=== PATIENT | female | born 1950 | race Caucasian/White ===

== ENCOUNTER 2017-11-19 10:06 | Day surgery (SDC) | payer MEDICARE ==
[~2017-11-19] VITALS: Ht 149.9 cm; Wt 75.3 kg
[~2017-11-19 10:06] MED LIST: ASPERCREME102 EX; ASPIRIN81 MG PO; ATENOLOL50 MG PO; BENADRYL 25MG C25 MG PO; BREO ELLIPTA 101 INH IN; BUPROPION150 M3 PO; CALCIUM + D3 601 TAB PO; COQ-10100 M1 PO; D32000 UNI1 PO; EQL OMEPRAZOLE20 MG PO; HUMALOG100 UNIT/M SC; LEVEMIR100 UNIT/M SC; LISINOPRIL10 MG PO; LOPID600 MG PO; LORATADINE10 M1 PO; MELOXICAM7.5 MG PO; METFORMIN500 MG PO; MULTI VIT PO; OMEGA 31000 MG PO; ROPINIROLE0.5 MG PO; SIMVASTATIN40 MG PO; TIZANIDINE HCL4 M1 PO
[2017-11-19] MEDS ORDERED: PERCOCET1 TA4 PO (13:45)
[2017-11-19] MEDS ORDERED: ECOTRIN LOW STR81 MG PO (13:45)
[2017-11-19] MEDS ORDERED: KEFLEX500 M1 PO (13:45)
[2017-11-19 14:38] VITALS: BP 137/64
== END 2017-11-19 14:58 | disposition home or self-care (01) ==
LOC: ORM 10:06
PROVIDERS: ATTEND Podiatrist Foot & Ankle Surgery
PROC: 0SGF44Z Fusion of Right Ankle Joint with Internal Fixation Device, Percutaneous Endoscopic Approach (ICD-10-PCS; principal; 2017-11-19)
PROC: 0SBF4ZZ Excision of Right Ankle Joint, Percutaneous Endoscopic Approach (ICD-10-PCS; 2017-11-19)
DX: M25.371 Other instability, right ankle (principal); M65.871 Other synovitis and tenosynovitis, right ankle and foot; S93.491A Sprain of other ligament of right ankle, initial encounter; S93.411A Sprain of calcaneofibular ligament of right ankle, initial encounter; M77.51 Other enthesopathy of right foot and ankle; X58.XXXA Exposure to other specified factors, initial encounter
CPT/HCPCS: J1100

== ENCOUNTER → 2018-02-07 | Day surgery (SDC) | payer MEDICARE ==
[~2018-02-07] MED LIST changes: +BREO ELLIPTA 101 INH PO; +ECOTRIN LOW STR81 MG PO; +HUMALOG KW100 UNIT/M SC; +KEFLEX500 M1 PO; +PERCOCET1 TA4 PO; +SG ASA LOW81 M1 PO
[2018-02-07 11:25] VITALS: BP 106/58
== END ==
LOC: ENDO 08:57 → ORM 15:45
PROVIDERS: ATTEND Internal Medicine Gastroenterology
PROC: 0DBP8ZX Excision of Rectum, Via Natural or Artificial Opening Endoscopic, Diagnostic (ICD-10-PCS; principal; 2018-02-07)
PROC: 0DBE8ZX Excision of Large Intestine, Via Natural or Artificial Opening Endoscopic, Diagnostic (ICD-10-PCS; 2018-02-07)
PROC: 0DB98ZX Excision of Duodenum, Via Natural or Artificial Opening Endoscopic, Diagnostic (ICD-10-PCS; 2018-02-07)
PROC: 0DB68ZX Excision of Stomach, Via Natural or Artificial Opening Endoscopic, Diagnostic (ICD-10-PCS; 2018-02-07)
PROC: 0DB48ZX Excision of Esophagogastric Junction, Via Natural or Artificial Opening Endoscopic, Diagnostic (ICD-10-PCS; 2018-02-07)
PROC: 0D758ZZ Dilation of Esophagus, Via Natural or Artificial Opening Endoscopic (ICD-10-PCS; 2018-02-07)
DX: R19.7 Diarrhea, unspecified (principal); K62.1 Rectal polyp; K57.30 Diverticulosis of large intestine without perforation or abscess without bleeding; K64.4 Residual hemorrhoidal skin tags; K64.8 Other hemorrhoids; K22.2 Esophageal obstruction; K21.0 Gastro-esophageal reflux disease with esophagitis; K22.70 Barrett's esophagus without dysplasia; K31.7 Polyp of stomach and duodenum; K29.70 Gastritis, unspecified, without bleeding; Q40.8 Other specified congenital malformations of upper alimentary tract; I10 Essential (primary) hypertension; E11.9 Type 2 diabetes mellitus without complications; I25.10 Atherosclerotic heart disease of native coronary artery without angina pectoris; I25.2 Old myocardial infarction; Z79.899 Other long term (current) drug therapy

== ENCOUNTER 2018-10-14 18:32 | Emergency (ER) | payer MEDICARE ==
[~2018-10-14] VITALS: Ht 149.9 cm; Wt 81.0 kg
[2018-10-14 19:34] LABS: URINE BILIRUBIN - DIPSTICK NEGATIVE (NEGATIVE); URINE BLOOD DIPSTICK LARGE (NEGATIVE); URINE COLOR YELLOW; URINE GLUCOSE - DIPSTICK >=1000 mg/dL (NEGATIVE); URINE KETONE TRACE mg/dL (NEGATIVE); URINE LEUK ESTERASE NEGATIVE (NEGATIVE); URINE NITRITE - DIPSTICK NEGATIVE (Negative); URINE PH 5.5 (4.5-8.0); URINE PROTEIN - DIPSTICK TRACE mg/dL (NEG-TRACE); URINE SPECIFIC GRAVITY >=1.030; URINE UROBILINOGEN - DIPSTICK 0.2 E.U./dL (0.2)
[2018-10-14 19:35] LABS: HEMATOCRIT 37.9 % (37.0-47.0); HEMOGLOBIN 12.3 g/dl (12.0-16.0); IMMATURE GRANULOCYTES 0.7 % (0.0-5.0); MEAN CELL VOLUME 90.9 fL CALC (80.0-100.0); MEAN CORPUSCULAR HGB 29.5 pG CALC (26.0-32.0); MEAN CORPUSCULAR HGB CONC 32.5 g/L CALC (32.0-36.0); NEUT# 15.38 thou/uL (2.00-7.15); RED BLOOD COUNT 4.17 mill/uL (4.20-5.60); RED CELL DISTRI WIDTH 12.9 % (11.5-15.5)
[2018-10-14 19:44] LABS: URINE SQUAMOUS EPITHELIAL CELL FEW EPI/hpf (0-FEW); URINE URIC ACID CRYSTALS FEW lpf
[2018-10-14 19:53] LABS: ALBUMIN 4.4 g/dL (3.2-5.0); CREATININE 1.4 mg/dL (0.5-1.0); POTASSIUM 4.7 mmol/l (3.5-5.1); TOTAL PROTEIN 7.1 g/dL (6.3-8.2)
[2018-10-14 19:55] LABS: BILIRUBIN, TOTAL 0.6 mg/dL (0.0-1.4)
[2018-10-14] MEDS ORDERED: TAMSULOSIN0.4 MG PO (21:10)
[2018-10-14] MEDS ORDERED: KEFLEX500 M1 PO (21:10)
[2018-10-14] MEDS ORDERED: TRAMADOL HYDROC50 MG PO (21:10)
[2018-10-14 22:30] VITALS: BP 110/50
== END 2018-10-14 22:30 | disposition home or self-care (01) ==
LOC: ED 18:32
PROVIDERS: Family Medicine
DX: N20.0 Calculus of kidney (principal); N39.0 Urinary tract infection, site not specified; I10 Essential (primary) hypertension; E11.9 Type 2 diabetes mellitus without complications; Z79.4 Long term (current) use of insulin

== ENCOUNTER 2018-10-15 14:40 | Observation (INO) | payer MEDICARE ==
[~2018-10-15] VITALS: Ht 149.9 cm; Wt 81.7 kg
[~2018-10-15 14:40] MED LIST changes: +TAMSULOSIN0.4 MG PO; +TRAMADOL HYDROC50 MG PO
[2018-10-15 14:51] VITALS: BP 139/76
[2018-10-15 15:34] LABS: HEMOGLOBIN 10.9 g/dl (12.0-16.0); IMMATURE GRANULOCYTES 0.4 % (0.0-5.0); MEAN CELL VOLUME 92.1 fL CALC (80.0-100.0); MEAN CORPUSCULAR HGB 29.5 pG CALC (26.0-32.0); MEAN CORPUSCULAR HGB CONC 32.1 g/L CALC (32.0-36.0); NEUT# 11.31 thou/uL (2.00-7.15); RED BLOOD COUNT 3.69 mill/uL (4.20-5.60); RED CELL DISTRI WIDTH 12.8 % (11.5-15.5)
[2018-10-15 15:51] LABS: CREATININE 1.5 mg/dL (0.5-1.0); POTASSIUM 4.2 mmol/l (3.5-5.1)
[2018-10-15 17:33] LABS: URINE BILIRUBIN - DIPSTICK NEGATIVE (NEGATIVE); URINE BLOOD DIPSTICK NEGATIVE (NEGATIVE); URINE COLOR YELLOW; URINE GLUCOSE - DIPSTICK NEGATIVE (NEGATIVE); URINE KETONE NEGATIVE (NEGATIVE); URINE LEUK ESTERASE NEGATIVE (Negative); URINE NITRITE - DIPSTICK NEGATIVE (Negative); URINE PH 5.5 (4.5-8.0); URINE PROTEIN - DIPSTICK NEGATIVE (NEG-TRACE); URINE SPECIFIC GRAVITY >=1.030; URINE UROBILINOGEN - DIPSTICK 0.2 E.U./dL (0.2)
[2018-10-15 17:34] LABS: URINE CLARITY HAZY
[2018-10-15 19:57] VITALS: BP 127/72
[2018-10-15 22:28] LABS: CHOLESTEROL HDL RATIO 4.3 (<4.4 (CALC))
[2018-10-16] VITALS (10 sets, daily range): BP systolic 112–136; BP diastolic 51–73
[2018-10-16 05:07] LABS: HEMOGLOBIN 10.7 g/dl (12.0-16.0); IMMATURE GRANULOCYTES 0.5 % (0.0-5.0); MEAN CELL VOLUME 92.2 fL CALC (80.0-100.0); MEAN CORPUSCULAR HGB 29.9 pG CALC (26.0-32.0); MEAN CORPUSCULAR HGB CONC 32.4 g/L CALC (32.0-36.0); NEUT# 11.96 thou/uL (2.00-7.15); RED BLOOD COUNT 3.58 mill/uL (4.20-5.60)
[2018-10-16 05:32] LABS: ALBUMIN 3.7 g/dL (3.2-5.0); BILIRUBIN, TOTAL 0.4 mg/dL (0.0-1.4); CREATININE 1.4 mg/dL (0.5-1.0); POTASSIUM 4.3 mmol/l (3.5-5.1); TOTAL PROTEIN 6.2 g/dL (6.3-8.2)
[2018-10-17 00:18] VITALS: BP 116/53
[2018-10-17 03:53] LABS: HEMATOCRIT 31.8 % (37.0-47.0); HEMOGLOBIN 10.2 g/dl (12.0-16.0); MEAN CELL VOLUME 93.3 fL CALC (80.0-100.0); MEAN CORPUSCULAR HGB 29.9 pG CALC (26.0-32.0); MEAN CORPUSCULAR HGB CONC 32.1 g/L CALC (32.0-36.0); NEUT# 8.37 thou/uL (2.00-7.15); RED BLOOD COUNT 3.41 mill/uL (4.20-5.60); RED CELL DISTRI WIDTH 13.1 % (11.5-15.5)
[2018-10-17 04:11] LABS: ALBUMIN 3.2 g/dL (3.2-5.0); ALKALINE PHOSPHATASE 85 u/l (38-126); ANION GAP 15 (6-22 (CALC)); BILIRUBIN, TOTAL 0.4 mg/dL (0.0-1.4); BUN 16 mg/dL (8-23); BUN/CREATININE RATIO 19 (12-20 (CALC)); CARBON DIOXIDE 21 mmol/l (22-30); CHLORIDE 106 mmol/l (95-108); CREATININE 0.8 mg/dL (0.5-1.0); GFR > 60 ML/MIN (>=60 (CALC)); GFR FOR AFR.AMER. > 60 ML/MIN (>=60 (CALC)); POTASSIUM 4.9 mmol/l (3.5-5.1); SGOT/AST 29 u/l (9-36); SODIUM 137 mmol/l (137-146); TOTAL PROTEIN 5.6 g/dL (6.3-8.2)
[2018-10-17 04:42] VITALS: BP 125/55
[2018-10-17 07:45] VITALS: BP 111/58
[2018-10-17 11:15] VITALS: BP 134/64
[2018-10-17] MEDS ORDERED: LEVAQUIN750 MG PO (12:21)
== END 2018-10-17 13:09 | disposition home or self-care (01) ==
LOC: MS2 14:40
PROVIDERS: ADMIT Internal Medicine Geriatric Medicine; ATTEND Internal Medicine Geriatric Medicine
PROC: 0T778DZ Dilation of Left Ureter with Intraluminal Device, Via Natural or Artificial Opening Endoscopic (ICD-10-PCS; principal; 2018-10-16)
PROC: BT1FZZZ Fluoroscopy of Left Kidney, Ureter and Bladder (ICD-10-PCS; 2018-10-16)
DX: N13.2 Hydronephrosis with renal and ureteral calculous obstruction (principal); N28.89 Other specified disorders of kidney and ureter; E11.9 Type 2 diabetes mellitus without complications; I25.10 Atherosclerotic heart disease of native coronary artery without angina pectoris; J44.9 Chronic obstructive pulmonary disease, unspecified; I10 Essential (primary) hypertension; E03.9 Hypothyroidism, unspecified; F41.9 Anxiety disorder, unspecified; F32.9 Major depressive disorder, single episode, unspecified; K57.30 Diverticulosis of large intestine without perforation or abscess without bleeding; M10.9 Gout, unspecified; E78.5 Hyperlipidemia, unspecified; F17.200 Nicotine dependence, unspecified, uncomplicated; Z85.118 Personal history of other malignant neoplasm of bronchus and lung
CPT/HCPCS: C1769; Q9967

== ENCOUNTER 2018-10-23 16:45 | Day surgery (SDC) | payer MEDICARE ==
[~2018-10-23] VITALS: Ht 149.9 cm; Wt 81.6 kg
[~2018-10-23 16:45] MED LIST changes: +LEVAQUIN750 MG PO
[2018-10-23 17:57] LABS: HEMATOCRIT 34.2 % (37.0-47.0); IMMATURE GRANULOCYTES 1.2 % (0.0-5.0); MEAN CELL VOLUME 91.7 fL CALC (80.0-100.0); MEAN CORPUSCULAR HGB 29.5 pG CALC (26.0-32.0); MEAN CORPUSCULAR HGB CONC 32.2 g/L CALC (32.0-36.0); NEUT# 5.37 thou/uL (2.00-7.15); RED BLOOD COUNT 3.73 mill/uL (4.20-5.60); RED CELL DISTRI WIDTH 12.7 % (11.5-15.5)
[2018-10-23 18:13] LABS: ALKALINE PHOSPHATASE 85 u/l (38-126); BILIRUBIN, TOTAL 0.4 mg/dL (0.0-1.4); BUN 12 mg/dL (8-23); BUN/CREATININE RATIO 16 (12-20 (CALC)); CHLORIDE 101 mmol/l (95-108); CREATININE 0.7 mg/dL (0.5-1.0); GFR > 60 ML/MIN (>=60 (CALC)); GFR FOR AFR.AMER. > 60 ML/MIN (>=60 (CALC)); SGOT/AST 16 u/l (9-36); SODIUM 141 mmol/l (137-146); TOTAL PROTEIN 6.6 g/dL (6.3-8.2)
[2018-10-23 18:14] LABS: ALBUMIN 3.9 g/dL (3.2-5.0); ANION GAP 14 (6-22 (CALC)); CARBON DIOXIDE 30 mmol/l (22-30)
[2018-10-23] MEDS ORDERED: KEFLEX500 MG PO (19:40)
[2018-10-23] MEDS ORDERED: NORCO1 TA1 PO (19:40)
[2018-10-23] MEDS ORDERED: PYRIDIUM200 MG PO (19:40)
[2018-10-23] MEDS ORDERED: DITROPAN5 MG/TA1 PO (19:40)
[2018-10-23 20:13] VITALS: BP 131/64
== END 2018-10-23 20:30 | disposition home or self-care (01) ==
LOC: ORM 16:45
PROVIDERS: ATTEND Urology
PROC: 0TF48ZZ Fragmentation in Left Kidney Pelvis, Via Natural or Artificial Opening Endoscopic (ICD-10-PCS; principal; 2018-10-23)
PROC: 0T778DZ Dilation of Left Ureter with Intraluminal Device, Via Natural or Artificial Opening Endoscopic (ICD-10-PCS; 2018-10-23)
PROC: 0TP98DZ Removal of Intraluminal Device from Ureter, Via Natural or Artificial Opening Endoscopic (ICD-10-PCS; 2018-10-23)
PROC: BT1FZZZ Fluoroscopy of Left Kidney, Ureter and Bladder (ICD-10-PCS; 2018-10-23)
DX: N13.2 Hydronephrosis with renal and ureteral calculous obstruction (principal); E11.9 Type 2 diabetes mellitus without complications; I25.10 Atherosclerotic heart disease of native coronary artery without angina pectoris; J44.9 Chronic obstructive pulmonary disease, unspecified; E03.9 Hypothyroidism, unspecified; F17.200 Nicotine dependence, unspecified, uncomplicated; Z95.5 Presence of coronary angioplasty implant and graft
CPT/HCPCS: Q9967

== ENCOUNTER 2022-12-07 14:42 | Emergency (ER) | payer MEDICARE ==
[~2022-12-07] VITALS: Ht 149.9 cm; Wt 76.3 kg
[~2022-12-07 14:42] MED LIST changes: +DITROPAN5 MG/TA1 PO; +GABAPENTIN100 MG PO; +KEFLEX500 MG PO; +NORCO1 TA1 PO; +PYRIDIUM200 MG PO
[2022-12-07 14:51] VITALS: BP 141/70
[2022-12-07 15:01] VITALS: BP 117/72
[2022-12-07] MEDS ORDERED: TRAMADOL HYDROC50 M1 PO (15:11)
[2022-12-07] MEDS ORDERED: OMNI-PAC300 MG PO (15:11)
[2022-12-07 15:15] VITALS: BP 128/68
[2022-12-07 15:16] VITALS: BP 128/68
== END 2022-12-07 15:24 | disposition home or self-care (01) ==
LOC: ED 14:42
DX: L60.0 Ingrowing nail (principal); E11.9 Type 2 diabetes mellitus without complications; Z79.84 Long term (current) use of oral hypoglycemic drugs; Z79.4 Long term (current) use of insulin

== ENCOUNTER 2024-04-04 16:19 | Emergency (ER) | payer MEDICARE ==
[~2024-04-04] VITALS: Ht 149.9 cm; Wt 67.0 kg
[2024-04-04] VITALS (33 sets, daily range): BP systolic 70–104; BP diastolic 46–64
[~2024-04-04 16:19] MED LIST changes: +CLOPIDOGREL75 MG PO; +CRESTOR40 MG PO; +FENOFIBRATE160 MG PO; +GABAPENTIN300 M3 PO; +JARDIANCE25 MG PO; +LEVEMIR100 UNIT; +LEVEMIR100 UNIT SC; -LEVEMIR100 UNIT/M SC; +MELOXICAM15 MG PO; +OMEPRAZOLE20 MG PO; +OMNI-PAC300 MG PO; +PROBIOTI2 PO; +ROPINIROLE2 MG PO; +TENORMIN PO; +TRAMADOL HYDROC50 M1 PO; +WELLBUTRIN200 M1 PO
[2024-04-04] MEDS ORDERED: SODIUM CHLORIDE 0.9% 1,000 ML IV ONE ×3 (16:55→21:30)
[2024-04-04 17:09] LABS: BASO% 0.1 % (0-3); EOS% 0.9 % (0-8); HEMATOCRIT 39.6 % (37.0-47.0); HEMOGLOBIN 13.7 g/dl (12.0-16.0); IMMATURE GRANULOCYTES 0.5 % (0.0-5.0); LYMPH% 6.5 % (15-41); MEAN CORPUSCULAR HGB 30.7 pG CALC (26.0-32.0); MEAN CORPUSCULAR HGB CONC 34.6 g/dL CAL (32.0-36.0); MONO% 8.8 % (2-13); NEUT# 11.84 thou/uL (2.00-7.15); NEUT% 83.2 % (42-76); RED BLOOD COUNT 4.46 mill/uL (4.20-5.60); RED CELL DISTRI WIDTH 12.7 % (11.5-15.5)
[2024-04-04 17:13] LABS: MEAN CELL VOLUME 88.8 fL CALC (80.0-100.0)
[2024-04-04 17:20] LABS: ALBUMIN 4.1 g/dL (3.2-5.0); POTASSIUM 3.7 mmol/l (3.5-5.1); TOTAL PROTEIN 6.6 g/dL (6.3-8.2)
[2024-04-04] MEDS ORDERED: cefTRIAXone SODIUM 2 GM in SODIUM CHLORIDE 0.9% 100 ML IV ONE (17:20)
[2024-04-04 17:33] LABS: CREATININE 1.7 mg/dL (0.5-1.0)
[2024-04-04] MEDS ORDERED: ONDANSETRON HCl 4 MG/2 ML SDV IV ONE (18:25)
[2024-04-04 18:40] LABS: URINE BLOOD DIPSTICK Negative (NEGATIVE); URINE COLOR Yellow; URINE GLUCOSE - DIPSTICK >=1000 mg/dL (NEGATIVE); URINE KETONE 15 mg/dL (NEGATIVE); URINE LEUK ESTERASE Negative (NEGATIVE); URINE NITRITE - DIPSTICK Negative (Negative); URINE PROTEIN - DIPSTICK 100 mg/dL (NEG-TRACE); URINE SPECIFIC GRAVITY 1.015; URINE UROBILINOGEN - DIPSTICK 0.2 E.U./dL (0.2)
[2024-04-04 18:46] LABS: URINE AMORPH SEDIMENT MODERATE hpf (NONE-FEW); URINE RENAL EPITHELIAL CELLS FEW hpf; URINE SQUAMOUS EPITHELIAL CELL MODERATE EPI/hpf (0-FEW); URINE TRANSITIONAL EPI. CELLS FEW hpf; URINE WBC 0-2 WBC/hpf (0-5)
[2024-04-04 18:48] LABS: URINE HYALINE CAST MANY lpf (NONE-RARE)
[2024-04-04] MEDS ORDERED: NOREPINEPHRINE BITARTRATE 4 MG in DEXTROSE 5% 250 ML IV PRN (22:00)
[2024-04-04] MEDS ORDERED: SODIUM CHLORIDE 0.9% 250 ML IV PRN (22:00)
[2024-04-05] VITALS: BP 81/42
[2024-04-05 00:15] VITALS: BP 91/46
[2024-04-05 00:30] VITALS: BP 100/56
[2024-04-05 00:45] VITALS: BP 100/56
== END 2024-04-05 00:45 | disposition short-term general hospital (02) ==
LOC: ED 16:19 → ED-I 16:59 → ED 04-05 00:45
PROVIDERS: Family Medicine
PROC: 0T9B70Z Drainage of Bladder with Drainage Device, Via Natural or Artificial Opening (ICD-10-PCS; principal; 2024-04-04)
DX: A41.9 Sepsis, unspecified organism (principal); I95.9 Hypotension, unspecified; K52.9 Noninfective gastroenteritis and colitis, unspecified; E87.20 Acidosis, unspecified; I10 Essential (primary) hypertension; E11.9 Type 2 diabetes mellitus without complications; F03.90 Unspecified dementia, unspecified severity, without behavioral disturbance, psychotic disturbance, mood disturbance, and anxiety; F41.9 Anxiety disorder, unspecified; F32.A Depression, unspecified; Z79.84 Long term (current) use of oral hypoglycemic drugs; Z79.4 Long term (current) use of insulin; Z87.891 Personal history of nicotine dependence; Z86.73 Personal history of transient ischemic attack (TIA), and cerebral infarction without residual deficits; Z85.118 Personal history of other malignant neoplasm of bronchus and lung; Z92.3 Personal history of irradiation; Z91.81 History of falling; Z20.822 Contact with and (suspected) exposure to COVID-19
CPT/HCPCS: J0696; J2405